=== PATIENT | male | born 1940 | race Caucasian/White ===

== ENCOUNTER 2022-10-17 16:46 | Emergency (ER) | payer OTHER ==
[~2022-10-17] VITALS: Ht 175.3 cm; Wt 78.5 kg
--- NOTE | 2022-10-17 16:50 | NUR ---
MD DR BURCH AT BEDSIDE
[2022-10-17 16:57] VITALS: BP_SYST 152
--- NOTE | 2022-10-17 17:00 | NUR ---
PT BIB DAUGHTER AWAKE AND ALERT AOX4, NO SOB. PT C/O PAIN TO R FOREH\EAD AFTER A MECHANICAL FALL AT HOME YESTERDAY. PT HAS HX OF CVA, HTN, HLD, DM2, AFIB.
[2022-10-17 17:47] LABS: BASOPHILS % (AUTO) 0.5 % (0.0-2.0); EOSINOPHILS % (AUTO) 0.3 % (0.0-4.0); HEMATOCRIT 47.1 % (36-54); LYMPHOCYTES # (AUTO) 2.2 K/uL (1.0-5.5); LYMPHOCYTES % (AUTO) 23.9 % (20.5-51.5); MEAN CORPUSCULAR HEMOGLOBIN 32 pg (27-31); MEAN CORPUSCULAR HGB CONC 34 % (32-36); MEAN CORPUSCULAR VOLUME 93 fL (79.0-98.0); MONOCYTES # (AUTO) 0.9 K/uL (0.0-1.0); MONOCYTES % (AUTO) 9.5 % (1.7-9.3); NEUTROPHILS # (AUTO) 6.1 K/uL (1.8-7.7); NEUTROPHILS % (AUTO) 65.8 % (40.0-70.0); PLATELET COUNT (AUTO) 151 K/uL (130-430); RED BLOOD CELL COUNT(AUTO) 5.08 MIL/uL (4.2-6.2); RED CELL DISTRIBUTION WIDTH 14.4 % (9.0-15.0); WHITE BLOOD COUNT (AUTO) 9.3 K/uL (4.8-10.8)
[2022-10-17 17:58] LABS: ALANINE AMINOTRANSFERASE 14 U/L (12-78); ALBUMIN 3.8 g/dL (3.4-4.8); ANION GAP 7 (5-15); ASPARTATE AMINOTRANSFERASE 18 U/L (10-37); CALCIUM 9.6 mg/dL (8.4-11.0); CHLORIDE 99 mmol/L (98-107); CREATININE 1.05 mg/dL (0.55-1.30); GLUCOSE 115 mg/dL (70-99); TOTAL BILIRUBIN 0.8 mg/dL (0.0-1.0); UREA NITROGEN, BLOOD 18 mg/dL (8-21)
[2022-10-17 17:59] LABS: INR 1.1 (0.80-1.20); PROTHROMBIN TIME 11.6 SECS (9.5-12.5)
[2022-10-17] MEDS ORDERED: IBUP-1969 PO (18:00)
[2022-10-17] MEDS ORDERED: TRAM50TA2 PO (18:00)
[2022-10-17 19:23] VITALS: BP_SYST 135
--- NOTE | 2022-10-17 19:28 | NUR ---
Patient given written and verbal discharge instructions and verbalizes understanding. ER MD DR Lewiscussed with patient the results and treatment provided. Patient in stable condition. ID arm band removed. Rx of MOTRIN given. Patient educated on pain management and to follow up with PMD. Pain Scale 2/10. Opportunity for questions provided and answered. Medication side effect fact sheet provided.
== END 2022-10-17 19:23 | disposition home or self-care (01) ==
LOC: SED 16:46
DX: S63.637A Sprain of interphalangeal joint of left little finger, initial encounter (principal); S00.83XA Contusion of other part of head, initial encounter; I48.91 Unspecified atrial fibrillation; Z79.899 Other long term (current) drug therapy; W18.39XA Other fall on same level, initial encounter; Y93.89 Activity, other specified; Y92.89 Other specified places as the place of occurrence of the external cause; Y99.8 Other external cause status
CPT/HCPCS: 36415; 70450-TC; 73140-TC; 76376; 80053; 84484; 85025; 85610-TC; 85730-TC; 93005; 99285

== ENCOUNTER 2023-11-09 05:40 | Emergency (ER) | payer OTHER ==
[~2023-11-09] VITALS: Ht 180.3 cm; Wt 90.7 kg
[~2023-11-09 05:40] MED LIST: IBUP-1969 PO
[2023-11-09 05:45] VITALS: PULSE 80; RESP 16; TEMP 98.6; O2SAT 94
[2023-11-09 07:05] LABS: BASOPHILS # (AUTO) 0.1 K/uL (0.0-0.2); BASOPHILS % (AUTO) 0.6 % (0.0-2.0); EOSINOPHILS # (AUTO) 0.1 K/uL (0.0-0.4); EOSINOPHILS % (AUTO) 0.6 % (0.0-4.0); HEMATOCRIT 46.2 % (36-54); HEMOGLOBIN 15.8 g/dL (14.0-18.0); LYMPHOCYTES % (AUTO) 21.1 % (20.5-51.5); MEAN CORPUSCULAR HEMOGLOBIN 31 pg (27-31); MEAN CORPUSCULAR HGB CONC 34 % (32-36); MEAN CORPUSCULAR VOLUME 91 fL (79.0-98.0); NEUTROPHILS # (AUTO) 6.2 K/uL (1.8-7.7); NEUTROPHILS % (AUTO) 66.7 % (40.0-70.0); PLATELET COUNT (AUTO) 118 K/uL (130-430); RED BLOOD CELL COUNT(AUTO) 5.08 MIL/uL (4.2-6.2); RED CELL DISTRIBUTION WIDTH 14.7 % (9.0-15.0); WHITE BLOOD COUNT (AUTO) 9.3 K/uL (4.8-10.8)
[2023-11-09 07:19] LABS: INR 1.1 (0.80-1.20); PROTHROMBIN TIME 11.5 SECS (9.5-12.5)
[2023-11-09 07:46] LABS: ANION GAP 9 (5-15); CALCIUM 8.8 mg/dL (8.4-11.0); CARBON DIOXIDE 25 mmol/L (23-29); CHLORIDE 100 mmol/L (98-107); CREATININE 1.01 mg/dL (0.55-1.30); GLUCOSE 146 mg/dL (74-106); POTASSIUM 4.3 mmol/L (3.5-5.1); SODIUM SERUM 134 mmol/L (136-145); UREA NITROGEN, BLOOD 18 mg/dL (8-21)
[2023-11-09 07:59] LABS: ALCOHOL, BLOOD < 3 mg/dL (<10)
[2023-11-09 08:02] LABS: BILIRUBIN,URINE NEGATIVE (NEGATIVE); BLOOD, URINE NEGATIVE (NEGATIVE); CLARITY/URINE CLEAR (CLEAR); COLOR,URINE YELLOW (YELLOW); GLUCOSE,URINE NEGATIVE (NEGATIVE); KETONES,URINE NEGATIVE (NEGATIVE); LEUKOCYTE ESTERASE ,URINE NEGATIVE (NEGATIVE); NITRITE, URINE NEGATIVE (NEGATIVE); PROTEIN URINE NEGATIVE (NEGATIVE); UROBILINOGEN,URINE 0.2 (0.2-1.0)
[2023-11-09 08:18] LABS: BARBITURATE, URINE NEGATIVE (NEG <=200); BENZODIAZEPINE, URINE NEGATIVE (NEG <=150); CANNABINOID, URINE NEGATIVE (NEG <=50); COCAINE, URINE NEGATIVE (NEG <=150); METHAMPHETAMINES SCREEN,URINE NEGATIVE (NEG <=500); OPIATE, URINE NEGATIVE (NEG <=100); PHENCYCLIDINE SCREEN,URINE NEGATIVE (NEG <=25); UR TRICYCLIC ANTIDEPRESSANTS NEGATIVE (NEG <=300); URINE AMPHETAMINE NEGATIVE (NEG <=500); URINE METHADONE NEGATIVE (NEG <=200); URINE OXYCODONE SCREEN NEGATIVE (NEG <=100)
[2023-11-09] MEDS: cloNIDine HCL 0.1 MG TABLET PO ONE (08:50)
[2023-11-09 10:10] VITALS: BP_SYST 142; PULSE 80; RESP 14; TEMP 97.5; O2SAT 96
== END 2023-11-09 10:10 | disposition home or self-care (01) ==
LOC: SED 05:40
DX: R51.9 Headache, unspecified (principal); I10 Essential (primary) hypertension; I48.91 Unspecified atrial fibrillation; Z79.899 Other long term (current) drug therapy
CPT/HCPCS: 99285; 70450; 71045; 80307; 80048; 81001; 85025; 85610; 85730; 84484; 36415; 93005; 72125; G0482; 81003